=== PATIENT | female | born 2005 ===

== ENCOUNTER 2024-07-23 10:20 | Emergency (ER) | payer OTHER, SELFPAY ==
--- NOTE | ~2024-07-23 | XR_ITS ---
EXAMINATION: XR CHEST CLINICAL INFORMATION: chest pain COMPARISON: None available. TECHNIQUE: Frontal view of the chest was obtained. FINDINGS: The lungs are adequately expanded. No focal consolidation. No pleural effusions or pneumothorax. The cardiac mediastinal silhouette is within normal limits. No acute osseous abnormality. XR/XR chest 1V IMPRESSION: No acute pulmonary disease. Electronically signed by: Stas Baig MD 07/23/2024 10:54 AM [facility]
--- NOTE | ~2024-07-23 | US_ITS ---
EXAMINATION: US TRIPLEX LOWER EXTREMITY, RIGHT CLINICAL INFORMATION: Pain COMPARISON: None available. TECHNIQUE: Color-flow triplex imaging with spectral analysis and compression Doppler were performed on the right lower extremity. FINDINGS: Respiratory variation, normal compression and augmented flow are noted throughout the right lower extremity. The visualized common femoral vein, superficial femoral vein, profunda femoral vein, popliteal vein and midcalf peroneal and posterior tibial venous segments show no evidence of deep venous thrombosis. There is no Delcid's cyst. US/US venous duplex LE RT IMPRESSION: No evidence of deep venous thrombosis involving the right lower extremity. Electronically signed by: Juanita Aldridge MD 07/23/2024 11:52 AM [facility]
--- NOTE | 2024-07-23 10:23 | ECG_ITS ---
Test Reason : CHEST PAIN Blood Pressure : / mmHG Vent. Rate : 088 BPM Atrial Rate : 088 BPM P-R Int : 136 ms QRS Dur : 090 ms QT Int : 360 ms P-R-T Axes : 046 043 019 degrees QTc Int : 435 ms Normal sinus rhythm with sinus arrhythmia Nonspecific T wave abnormality Abnormal ECG No previous ECGs available Referred By: Generic ED Physician Electronically Signed By:Lee Trotter
[2024-07-23 10:30] VITALS: BP 148/97; PULSE 92; RESP 20; TEMP 36.6; O2SAT 100; BMI 36.9
--- NOTE | 2024-07-23 11:10 | ED.CHESTPAIN ---
HPI - Chest Pain General Chief Complaint: Chest Pain Stated Complaint: Chest Pain/Leg Pain Time Seen by Provider: 07/23/24 11:06 Source: patient Mode of arrival: ambulatory Limitations: no limitations History of Present Illness ED Provider: YUNIER TOM narrative: 19 yo female no PMH not on OCPs here with c/o R leg pain and aching at night no known trauma no rash or fever no tick bites then feels dyspnea and some chest discomfort when this happens. No travel or procedures. This has been 1 week. No known hx of VTE in family. She notes it is on and off MD complaint: chest pain Onset (ago): day(s) (7) Timing of current episode: episodic Prior episodes: Yes Onset: during rest and during exertion Pain location: substernal Pain radiation: none Severity: mild Quality: aching Relieving factors: nothing Exacerbating factors: exertion and movement Associated symptoms: dyspnea and other (leg pain) Treatment prior to arrival: none Related Data Allergies Allergy/AdvReac Type Severity Reaction Status Date / Time No Known Allergies Allergy Verified 07/23/24 10:32 Review of Systems Review of Systems: Constitutional : No Fever, No Chills ENT/Mouth : No sore throat, No Rhinorrhea, No Swallowing Difficulty Eyes: No Eye Pain, No Swelling, No Redness Cardiovascular : pos Chest Pain, positive SOB, No Orthopnea, no Edema, pos leg pain Respiratory : No Cough, No Sputum, No Wheezing, positive dyspnea Gastrointestinal : No Nausea, No Vomiting, No Diarrhea, No abdominal Pain, No Hematochezia, No Melena Genitourinary : No Dysuria, No Urinary Frequency, No Hematuria Musculoskeletal : No joint pain, No Myalgias Skin : No Skin Lesions, No rash Neuro : No Weakness, No Numbness, No Dizziness, No Headache All other systems reviewed and are negative [facility] Past Medical History Attestation statement: The following information was validated with the patient. Source: old records reviewed Medical History No pertinent past medical history Social History Social History (Updated 07/23/24 @ 11:42 by Kristyn Walsh DO) Patient Tobacco Use Status: Never used Tobacco Smoked in Last 30 Days: No Use of substances other than those prescribed or required for medical reasons: No Advance Directives: No Advance Directives Information Provided: Yes Patient : No Physical Exam Vital Signs: Vital Signs: Last Vital Signs Temp 98.3 F 07/23/24 11:21 Pulse 87 07/23/24 11:21 Resp 16 07/23/24 11:21 BP 121/84 07/23/24 11:21 Pulse Ox 99 07/23/24 11:21 O2 Del Method Room Air 07/23/24 11:21 BMI result Body Mass Index 36.9 Appearance: Alert. Oriented X3. No acute distress. Eyes: Pupils equal, round and reactive to light. ENT: Pharynx normal. Neck: Normal inspection. Neck supple. CVS: Normal heart rate and rhythm. Pulses normal. Respiratory: No respiratory distress. Breath sounds normal. Abdomen: Soft and nontender. Skin: Skin warm and dry. Normal skin color. Normal skin turgor. Extremities: No lower extremity edema. No calf ttp Neuro: Oriented X 3. No motor deficit. No sensory deficit. Medical Decision Making Medical Decision Making [facility] Narrative: 19 yo female no PMH here with c/o atraumatic R leg pain then feels short of breath and chest pain - she has no risk factors for ACS or VTE at this time I have ordered ddimer for low prob VTE, DVT study, CXR and troponin. At this time no infectious symptoms or any other concerns. If work up negative stable for DC Differential Diagnosis Differential Diagnoses: The differential diagnosis associated with the presentation includes VTE low probability, MSK pain, atypical chest pain, stress Admission/Observation Consideration of admission/observation: Escalation of care including admission/observation considered negative work up stable for DC Lab Data [facility] Lab Attestation statement: I reviewed the patient's lab results. 07/23/24 11:16 07/23/24 11:16 Labs: Lab Results 07/23/24 Range/Units 11:16 WBC 11.2 H (4.8-10.8) X10*3/uL RBC 5.46 (4.20-5.50) X10*6/uL Hgb 15.2 (12.0-16.0) g/dl Hct 45.1 (37.0-47.0) % MCV 82.6 (80.0-98.0) fL MCH 27.8 (27.0-33.0) pg MCHC 33.7 (31.0-35.0) g/dl RDW 12.4 (11.0-16.0) % Plt Count 339 (160-400) X10*3/uL MPV 11.0 (9.4-12.3) fL Immature Gran % (Auto) 0.3 (0.0-0.4) % Neut % (Auto) 51.6 (45-73) % Lymph % (Auto) 30.8 (20-40) % [place] % (Auto) 5.8 (2-11) % Eos % (Auto) 10.9 H (0-4) % Baso % (Auto) 0.6 (0-2) % Lymph # (Auto) 3.5 (1.2-4.9) X10*3/uL [place] # (Auto) 0.7 (0.1-1.2) X10*3/uL Eos # (Auto) 1.2 H (0.0-0.4) X10*3/uL Baso # (Auto) 0.1 (0.0-0.2) X10*3/uL Abs Immat Gran (auto) 0.03 (0.00-0.03) X10*3/uL Absolute Neuts (auto) 5.8 (2.0-8.3) x10*3/uL Absolute Nucleated RBC 0.000 (0.0-0.012) X10*3/uL Nucleated RBC % (auto) 0.0 (0.0-0.2) /100WBC D-Dimer High Sensitivty < 150 NG/ML Sodium 138 (135-145) mmol/L Potassium 3.7 (3.3-5.1) mmol/L Chloride 107 (96-108) mmol/L Carbon Dioxide 23 (22-29) mmol/L Anion Gap 12 (12-20) BUN 10 (9-16) mg/dL Creatinine 0.76 (0.5-1.4) mg/dL Estim Creat Clear Calc 132.8 Estimated GFR > 60 Random Glucose 91 (60-115) mg/dL Calcium 9.6 (8.4-10.2) mg/dL Magnesium 1.9 (1.6-2.6) mg/dL Troponin I High Sens < 2.7 (<3.5-17.0) ng/L Independent Interpretation I performed an independent interpretation of an: EKG, Plain X-Ray (normal) and Ultrasound (no DVT) Interpretation: Rate: 88 Rhythm: NSR Driver: normal Normal P waves. Normal DANG. Normal QRS complex. ST T wave : no CHRISTIN, nonspecific ST T wave changes V5-V6 qTC: 435 prior studies: no prior The study has been interpreted contemporaneously by me. . Radiology Impression Discussion of test interpretation with radiology: I have reviewed the radiologist's reading. Independent Historian Clinical information obtained from an independent historian. History obtained from or confirmed by: Friend Discharge Plan Discharge Clinical Impression: Atypical chest pain, Leg pain, right Patient Disposition: Home, Self-Care Instructions: Chest Pain (ED), Leg Pain (ED) Additional Instructions: EKG DVT study negative normal labs and study of heart and for blood clots is negative please return for any worsening symptoms or concerns and follow up with your doctor FINDINGS: Respiratory variation, normal compression and augmented flow are noted throughout the right lower extremity. The visualized common femoral vein, superficial femoral vein, profunda femoral vein, popliteal vein and midcalf peroneal and posterior tibial venous segments show no evidence of deep venous thrombosis. There is no Delcid's cyst. US/US venous duplex LE RT IMPRESSION: No evidence of deep venous thrombosis involving the right lower extremity. Print Language: Tajik
[2024-07-23 11:20] LABS: MANUAL DIFF FLAG NO
[2024-07-23 11:21] VITALS: BP 121/84; PULSE 87; RESP 16; TEMP 36.8; O2SAT 99
[2024-07-23 11:22] LABS: Basophils Absolute Auto 0.1 X10*3/uL (0.0-0.2); Basophils Percent Auto 0.6 % (0-2); Eosinophils Absolute Auto 1.2 X10*3/uL (0.0-0.4); Eosinophils Percent Auto 10.9 % (0-4); Hematocrit 45.1 % (37.0-47.0); Hemoglobin 15.2 g/dl (12.0-16.0); Imm Gran Abs Auto 0.03 X10*3/uL (0.00-0.03); Imm Gran Pct Auto 0.3 % (0.0-0.4); Lymphocytes Absolute Auto 3.5 X10*3/uL (1.2-4.9); Lymphocytes Percent Auto 30.8 % (20-40); Mean Corpuscular HGB Conc 33.7 g/dl (31.0-35.0); Mean Corpuscular Hemoglobin 27.8 pg (27.0-33.0); Mean Corpuscular Volume 82.6 fL (80.0-98.0); Monocytes Absolute Auto 0.7 X10*3/uL (0.1-1.2); Monocytes Percent Auto 5.8 % (2-11); Neutrophils Absolute Auto 5.8 x10*3/uL (2.0-8.3); Neutrophils Percent Auto 51.6 % (45-73); Platelet Count 339 X10*3/uL (160-400); Red Blood Count 5.46 X10*6/uL (4.20-5.50); Red Cell Distribution Width 12.4 % (11.0-16.0); White Blood Count 11.2 X10*3/uL (4.8-10.8)
--- NOTE | 2024-07-23 11:26 | PC.NURSE ---
Pt comes to ED today with c/o R leg pain and chest pain 8/10 x1 week. A&Ox3, VSS, afebrile. Skin is warm and dry Breaths and speech are even and unlabored. Facial symmetry present Denies blood thinners, trauma to R leg, or hx of injury. Ed provider at bedside for eval. Blood labs drawn--results pending Pt will have U/S NAD noted at this time; Pt resting comfortably with lay out helper at bedside.
[2024-07-23 11:32] LABS: D Dimer High Sensitivity < 150 NG/ML
[2024-07-23 11:36] LABS: Anion Gap 12 (12-20); Blood Urea Nitrogen 10 mg/dL (9-16); Calcium 9.6 mg/dL (8.4-10.2); Carbon Dioxide 23 mmol/L (22-29); Chloride 107 mmol/L (96-108); Creatinine Clr Calc Pharmacy 132.8; Estimated Glomerular Filt Rate > 60; Glucose Random 91 mg/dL (60-115); Potassium 3.7 mmol/L (3.3-5.1); Sodium 138 mmol/L (135-145)
[2024-07-23 11:38] LABS: Magnesium 1.9 mg/dL (1.6-2.6)
[2024-07-23 11:46] LABS: Troponin-I High Sensitivity < 2.7 ng/L (<3.5-17.0)
[2024-07-23 12:14] VITALS: BP 121/84; PULSE 87; RESP 16; TEMP 36.8; O2SAT 99
== END 2024-07-23 12:14 | disposition home or self-care (01) ==
PROVIDERS: Emergency Provider Emergency Medicine
DX: R07.89 Other chest pain (principal); M79.604 Pain in right leg; R60.0 Localized edema; Z79.899 Other long term (current) drug therapy
CPT/HCPCS: 36415; 71045; 80048; 83735; 84484; 85025; 85379; 93005; 93971; 99284; 99285

== ENCOUNTER → 2024-07-23 10:23 | Outpatient (BNV) | payer OTHER, SELFPAY | PROVIDERS: Emergency Provider Emergency Medicine; Visit Provider Internal Medicine Cardiovascular Disease | DX: R94.31 Abnormal electrocardiogram [ECG] [EKG] (principal) | CPT/HCPCS: 93010 ==